=== PATIENT | female | born 1935 | race African-American/Black ===

== ENCOUNTER 2019-03-28 15:26 | Emergency (ER) | payer MEDICARE ==
[~2019-03-28] VITALS: Ht 157.5 cm; Wt 51.3 kg
[~2019-03-28 15:26] MED LIST: ACET-1757 PO; AMLO10TA4 PO; AMLO10TA8 PO; AMLO5TAB4 PO; BACL-19 PO; CARB200T PO; CARV12.52 PO; CARV6.252 PO; CHLO25TA PO; CLON0.1T22 PO; DIAZ5TAB PO; DULO30CA2 PO; HYDR-3237 PO; HYDR-3342 PO; HYDR-757 PO; HYDR1TAB13 PO; LEVO15TA6 PO; LISI-167 PO; LORA-446 PO; LORA0.5T PO; LOSA25TA25 PO; POTA10CA PO; POTA10TA5 PO; ROSU10TA2 PO; ROSU5TAB PO; SPIR25TA5 PO; [UNRECOGNIZED DRUG - OTHER] PO
[2019-03-28] MEDS ORDERED: MECLIZINE CHEWABLE 25 MG TAB PO ONE (16:00)
[2019-03-28 16:12] LABS: MEAN CORPUSCULAR HGB CONC 33.4 g/dL (32.4-35.8); MEAN CORPUSCULAR VOLUME 92.8 fL (80-100); MEAN PLATELET VOLUME 8.6 fL (7.4-10.4); PLATELET COUNT 171 x10^3/uL (130-400); RED BLOOD COUNT 3.76 x10^6/uL (3.82-5.3); RED CELL DISTRIBUTION WIDTH 14.1 % (9.6-15.2)
[2019-03-28 16:16] LABS: ALBUMIN 3.9 g/dL (3.4-5.0); ANION GAP 5 mmol/L (5-15); CALCIUM 8.4 mg/dL (8.5-10.1); CHLORIDE 110 mmol/L (98-107)
[2019-03-28] MEDS ORDERED: MECLIZINE CHEWABLE 25 MG TAB ONE (16:17)
[2019-03-28 16:20] LABS: TROPONIN I < 0.015 ng/mL (0.000-0.045)
[2019-03-28 16:37] LABS: BASOPHILS # (AUTO) 0.02 x10^3/uL (0-0.1); BASOPHILS % (AUTO) 0 % (0-1); EOSINOPHILS # (AUTO) 0.08 x10^3/uL (0-0.4); EOSINOPHILS % (AUTO) 2 % (1-7); LYMPHOCYTES # (AUTO) 1.07 x10^3/uL (1-3.4); LYMPHOCYTES % (AUTO) 25 % (22-44); MD SCAN; MONOCYTES # (AUTO) 0.58 x10^3/uL (0.2-0.8); MONOCYTES % (AUTO) 13 % (2-9); NEUTROPHILS # (AUTO) 2.59 x10^3/uL (1.8-6.8); NEUTROPHILS % (AUTO) 60 % (42-75)
[2019-03-28] MEDS ORDERED: ENALAPRILAT 1.25 MG/ML, 2ML ONE (16:50)
[2019-03-28 16:54] LABS: MICROSCOPIC AUTO
[2019-03-28 16:56] LABS: CULTURE INDICATED? YES
[2019-03-28] MEDS ORDERED: ENALAPRILAT 1.25 MG/ML, 2ML IV ONE (17:00)
--- NOTE | 2019-03-28 17:00 | NUR ---
PT TO MRI VIA LOIS IN NAD
[2019-03-28] MEDS ORDERED: hydrALAzine 20 MG/ML, 1ML IV ONE (18:00)
[2019-03-28] MEDS ORDERED: hydrALAzine 20 MG/ML, 1ML ONE (18:25)
--- NOTE | 2019-03-28 18:55 | NUR ---
BEDSIDE REPORT TO EMY BREAUX, PT ARE TRANSFERRED AT THIS TIME. AWAITING BP RECHECK @ 1900
[2019-03-28 19:40] VITALS: BP 164/70
== END 2019-03-28 19:41 | disposition home or self-care (01) ==
LOC: ED 16:04
DX: I10 Essential (primary) hypertension (principal); H81.399 Other peripheral vertigo, unspecified ear
CPT/HCPCS: 36415; 70450; 70551; 71045; 80048; 81001; 82040; 84484; 85025; 87086; 93005; 96374; 96375; 99284; J0360

== ENCOUNTER 2019-07-09 11:11 | Emergency (ER) | payer MEDICARE ==
[~2019-07-09] VITALS: Ht 160 cm; Wt 48.1 kg
[2019-07-09 19:19] VITALS: BP 138/63
== END 2019-07-09 19:52 ==
LOC: ED 13:56
DX: I16.0 Hypertensive urgency (principal); G50.0 Trigeminal neuralgia; E78.00 Pure hypercholesterolemia, unspecified; I10 Essential (primary) hypertension
CPT/HCPCS: 36415; 70450; 70551; 80048; 82040; 85025; 99284; J0360

== ENCOUNTER 2019-10-14 18:23 | Emergency (ER) | payer MEDICARE ==
[~2019-10-14] VITALS: Ht 160 cm; Wt 48.5 kg
[~2019-10-14 18:23] MED LIST changes: -ACET-1757 PO; +ACET-2065 PO; +ASPI-496 PO; +CARV25TA12 PO; +CHOL100011 PO
--- NOTE | 2019-10-14 19:05 | NUR ---
"I CAN BARELY SEE ANYTHING". STARTED AT 1600 AFTER EYE DOCTOR. LEFT SIDE OF TONGUE NUMB, LEFT ARM PAIN AND NUMBNESS. STATES "SHE BELIEVES SHE IS HAVING A STROKE". DENIES LOC. MONITORS APPLIED, SIDERAIL SUP X2, CALL LIGHT WITHIN REACH
--- NOTE | 2019-10-14 19:55 | NUR ---
PT MEDICATED PER MAR. PT TO CT
[2019-10-14] MEDS ORDERED: METO25TA2 PO (20:00)
[2019-10-14] MEDS ORDERED: CLON0.1T22 PO (20:00)
[2019-10-14] MEDS ORDERED: TELM40TA PO (20:00)
[2019-10-14] MEDS ORDERED: AMLO-150 PO (20:00)
[2019-10-14 20:12] LABS: ANION GAP 5 mmol/L (5-15); CALCIUM 8.5 mg/dL (8.5-10.1); CHLORIDE 108 mmol/L (98-107); CREATININE 0.89 mg/dL (0.55-1.02)
[2019-10-14 20:33] LABS: MD YES; MEAN CORPUSCULAR HEMOGLOBIN 32.4 pg (27.0-34.8); MEAN CORPUSCULAR HGB CONC 33.7 g/dL (32.4-35.8); MEAN CORPUSCULAR VOLUME 95.9 fL (80-100); MEAN PLATELET VOLUME 7.9 fL (7.4-10.4); PLATELET COUNT 159 x10^3/uL (130-400); RED BLOOD COUNT 3.38 x10^6/uL (3.82-5.3); RED CELL DISTRIBUTION WIDTH 14.5 % (9.6-15.2)
[2019-10-14 20:37] LABS: BANDS%(MANUAL) 2 % (0-7); EOS#(MANUAL) 0.05 x10^3/uL (0.0-0.4); EOS% (MANUAL) 1 % (1-7); LYMPHS% (MANUAL) 27 % (22-44); MONOS#(MANUAL) 0.34 x10^3/uL (0.3-2.7); MONOS% (MANUAL) 7 % (2-9); SEG#(MANUAL) 3.02 x10^3/uL (1.8-6.8); SEGS% (MANUAL) 63 % (42-75)
[2019-10-14 20:38] LABS: <PLATELET ESTIMATE> ADEQUATE; <RBC MORPHOLOGY> NORMAL; LARGE PLATELETS 1+
--- NOTE | 2019-10-14 20:44 | NUR ---
pt up to rr with standby assist, tolerated transfer without difficulty, pt now resting on gurney, monitors in place, siderail sup x2, call light within reach
--- NOTE | 2019-10-14 21:48 | NUR ---
ERP AT BEDSIDE FOR RECHECK
[2019-10-14 23:01] VITALS: BP 102/42
--- NOTE | 2019-10-14 23:02 | NUR ---
PT RESTING WITH EYES CLOSED, NAD, RESPIRATIONS EVEN AND UNLABORED, MONITORS IN PLACE, CALL LIGHT WITHIN REACH. CHART UP FOR RECHECK
== END 2019-10-14 23:31 | disposition home or self-care (01) ==
LOC: ED 23:15
DX: H53.8 Other visual disturbances (principal); I10 Essential (primary) hypertension; R20.2 Paresthesia of skin
CPT/HCPCS: 36415; 70450; 80048; 85025; 93005; 99284

== ENCOUNTER 2019-11-01 08:54 | Emergency (ER) | payer MEDICARE ==
[~2019-11-01] VITALS: Ht 157.5 cm; Wt 48.4 kg
[~2019-11-01 08:54] MED LIST changes: +AMLO-150 PO; +METO25TA2 PO; +TELM40TA PO
--- NOTE | 2019-11-01 09:14 | NUR ---
PATIENT BROUGHT BACK FRO TRIAGE WITH CHIEF COMPLAINT OF LEFT ARM PAIN. PATIENT DENIES RECENT TRAUMA, CP, SOB, N/V. PATIENT WAS SEEN IN ER 3 WEEKS AGO FOR SAME COMPLAINT.
[2019-11-01] MEDS ORDERED: HYDROcodone/APAP 5/325 TABLET ONE (09:28)
[2019-11-01] MEDS ORDERED: HYDROcodone/APAP 5/325 TABLET PO ONE (09:30)
--- NOTE | 2019-11-01 10:10 | NUR ---
PT TO CT
[2019-11-01 10:20] LABS: MEAN CORPUSCULAR HEMOGLOBIN 31.6 pg (27.0-34.8); MEAN CORPUSCULAR HGB CONC 32.9 g/dL (32.4-35.8); MEAN PLATELET VOLUME 7.9 fL (7.4-10.4); PLATELET COUNT 149 x10^3/uL (130-400); RED CELL DISTRIBUTION WIDTH 13.9 % (9.6-15.2)
[2019-11-01 10:22] LABS: ALBUMIN 3.6 g/dL (3.4-5.0); ANION GAP 8 mmol/L (5-15); CALCIUM 8.3 mg/dL (8.5-10.1); CHLORIDE 103 mmol/L (98-107); CREATININE 1.02 mg/dL (0.55-1.02)
[2019-11-01 10:25] LABS: TROPONIN I < 0.015 ng/mL (0.000-0.045)
[2019-11-01 10:56] LABS: MD YES
[2019-11-01 11:03] LABS: BASOS#(MANUAL) 0.03 x10^3/uL (0-0.1); BASOS% (MANUAL) 1 % (0-1); LYMPH#(MANUAL) 0.63 x10^3/uL (1-3.4); LYMPHS% (MANUAL) 19 % (22-44); MONOS#(MANUAL) 0.36 x10^3/uL (0.3-2.7); MONOS% (MANUAL) 11 % (2-9); SEG#(MANUAL) 2.28 x10^3/uL (1.8-6.8); SEGS% (MANUAL) 69 % (42-75)
[2019-11-01 11:05] LABS: OVALOCYTES 1+
--- NOTE | 2019-11-01 11:05 | NUR ---
PT RESTING IN BED, CALL LIGHT IN REACH.
[2019-11-01 11:06] LABS: <PLATELET ESTIMATE> ADEQUATE; <PLT MORPHOLOGY> NORMAL PLT MORPH; ANISOCYTOSIS 1+
[2019-11-01 11:29] VITALS: BP 148/60
--- NOTE | 2019-11-01 11:29 | NUR ---
DISCHARGE INSTRUCTIONS REVIEWED
== END 2019-11-01 11:53 | disposition home or self-care (01) ==
LOC: ED 09:19
DX: M54.12 Radiculopathy, cervical region (principal); M25.512 Pain in left shoulder; G89.29 Other chronic pain; I10 Essential (primary) hypertension; K21.9 Gastro-esophageal reflux disease without esophagitis; E78.00 Pure hypercholesterolemia, unspecified
CPT/HCPCS: 36415; 71045; 72125; 80048; 82040; 84484; 85025; 93005; 99284

== ENCOUNTER 2020-05-13 12:46 | Emergency (ER) | payer MEDICARE ==
[~2020-05-13] VITALS: Ht 157.5 cm; Wt 48.1 kg
[2020-05-13] MEDS ORDERED: LABETALOL 5MG/ML, 20ML ONE (13:20)
[2020-05-13] MEDS ORDERED: SODIUM CHLORIDE FLUSH 10ML SYR IVF ONE (13:30)
[2020-05-13] MEDS ORDERED: LABETALOL 5MG/ML, 20ML IVPush ONE (13:30)
[2020-05-13 13:32] LABS: BASOPHILS # (AUTO) 0.01 x10^3/uL (0-0.1); BASOPHILS % (AUTO) 0 % (0-1); EOSINOPHILS # (AUTO) 0.14 x10^3/uL (0-0.4); EOSINOPHILS % (AUTO) 3 % (1-7); LYMPHOCYTES # (AUTO) 1.01 x10^3/uL (1-3.4); LYMPHOCYTES % (AUTO) 24 % (22-44); MD NO; MEAN CORPUSCULAR HEMOGLOBIN 31.8 pg (27.0-34.8); MEAN CORPUSCULAR HGB CONC 33.5 g/dL (32.4-35.8); MEAN PLATELET VOLUME 8.5 fL (7.4-10.4); MONOCYTES # (AUTO) 0.39 x10^3/uL (0.2-0.8); MONOCYTES % (AUTO) 10 % (2-9); NEUTROPHILS # (AUTO) 2.58 x10^3/uL (1.8-6.8); NEUTROPHILS % (AUTO) 62 % (42-75); PLATELET COUNT 137 x10^3/uL (130-400); RED BLOOD COUNT 3.51 x10^6/uL (3.82-5.3); RED CELL DISTRIBUTION WIDTH 14.4 % (9.6-15.2)
[2020-05-13 13:37] LABS: ALBUMIN 3.7 g/dL (3.4-5.0); ANION GAP 5 mmol/L (5-15); CALCIUM 8.3 mg/dL (8.5-10.1); CHLORIDE 108 mmol/L (98-107); CREATININE 0.99 mg/dL (0.55-1.02)
[2020-05-13 14:42] VITALS: BP 158/98
== END 2020-05-13 15:05 | disposition home or self-care (01) ==
LOC: ED 14:21
DX: R51 Headache (principal); I10 Essential (primary) hypertension; R94.31 Abnormal electrocardiogram [ECG] [EKG]
CPT/HCPCS: 36415; 80048; 82040; 85025; 93005; 96374; 99284

== ENCOUNTER 2021-05-03 19:08 | Emergency (ER) | payer MEDICARE ==
[~2021-05-03] VITALS: Ht 160 cm; Wt 49.2 kg
[~2021-05-03 19:08] MED LIST changes: +AMLO-211 PO; -AMLO10TA8 PO
--- NOTE | 2021-05-03 19:47 | NUR ---
[employer]: Pt walked back from lobby to room at this time. Steady upon ambulation.
[2021-05-03 20:15] VITALS: BP 179/90
== END 2021-05-03 20:33 | disposition home or self-care (01) ==
LOC: ED 20:10
DX: K12.0 Recurrent oral aphthae (principal); R94.31 Abnormal electrocardiogram [ECG] [EKG]; I10 Essential (primary) hypertension; K21.9 Gastro-esophageal reflux disease without esophagitis
CPT/HCPCS: 93005; 99283